=== PATIENT | female | born 1960 | race Hispanic/Latino ===

== ENCOUNTER 2024-07-07 16:33 | Inpatient (IN) | payer OTHER, SELFPAY ==
[2024-07-07 16:57] LABS: Absolute Basophils 0.1 K/uL (0-0.5); Absolute Eosinophils 0.1 K/uL (0-0.5); Absolute Lymphocytes (CBC) 1.4 K/uL (0.7-4.9); Absolute Monocytes 1.4 K/uL (0.1-1.3); Absolute Neutrophil 12.2 K/uL (1.8-8.0); Basophils % 0.4 % (0-1.3); Eosinophils % 0.6 % (0-4.4); Hematocrit 30.4 % (36.0-45.0); Hemoglobin 9.9 g/dL (12.0-15.0); Lymphocytes % 9.5 % (15.3-44.8); MCH 29.6 pg (27.0-35.0); MCHC 32.7 g/dL (32.0-36.0); MCV 90.3 fL (80-100); MPV 7.9 fL (7.6-11.3); Neutrophils % 80.5 % (41.7-73.7); Platelets 238 thou/uL (152-406); RBC Red Blood Cell Count 3.36 M/uL (3.86-4.86); Red Cell Distribution Width 13.6 % (12.1-15.2)
[2024-07-07 17:06] LABS: PT Prothrombin Time 12.1 SECONDS (9.4-12.5); PTT, Activated Partial Thromb 29.5 SECONDS (24.3-36.9); Protime INR 1.08
[2024-07-07] MEDS ORDERED: NA CHLORIDE 0.9% 2,000 ML ONE (17:06)
[2024-07-07 17:22] LABS: Albumin 2.3 g/dL (3.4-5.0); Albumin/Globulin Ratio 0.5 (1.1-1.8); Alkaline Phosphatase 133 U/L (45-117); Anion Gap 10.4 mEq/L (5.0-15.0); BUN Blood Urea Nitrogen 37 mg/dL (7-18); Bicarbonate 23 mEq/L (21-32); Bilirubin Total 0.4 mg/dL (0.2-1.0); Creatine Phosphokinase 32 U/L (26-192); Globulin 4.5 g/dL (2.3-3.5); Glomerular Filtration Rate 21 ml/min (=/>90); Glucose Level 322 mg/dL (74-106); Potassium 4.4 mEq/L (3.5-5.1); Protein, Total 6.8 g/dL (6.4-8.2); Sodium Level 137 mEq/L (136-145); Troponin High Sensitivity 7.2 pg/mL (<58.9)
[2024-07-07 17:23] LABS: ALT/SGPT < 14 U/L (13-56); AST/SGOT < 10 U/L (15-37)
[2024-07-07 17:43] LABS: Specific Gravity 1.015 (1.005-1.030); Sqamous Epithelial <5 /HPF (None Seen); Urine Bacteria <20 /HPF (<20); Urine Bilirubin NEGATIVE (Negative); Urine Blood 1+ (Negative); Urine Clarity Turbid (Clear); Urine Color Light-Yellow (Yellow); Urine Crystals Unidentified Few /HPF (None Seen); Urine Culture Reflex Order REFLEXED; Urine Glucose 4+ (Over) (Negative); Urine Ketones NEGATIVE (Negative); Urine Microscopic Reflex YN ORDER UMIC; Urine Mucus Slight /HPF (None Seen); Urine Nitrite NEGATIVE (Negative); Urine Protein 3+ (Negative); Urine RBC 21-50 /HPF (None Seen); Urine Urobilinogen Normal (Normal); Urine WBC >50 /HPF (<5); Urine WBC Clump Rare /HPF (None Seen); Urine Yeast (Budding) Trace /HPF (None Seen); Urine pH 6.5 (5.0-7.0)
--- NOTE | 2024-07-07 17:47 | RAD REPORT ---
EXAMINATION: ONE VIEW CHEST XR CLINICAL INDICATION: Female, 63 years old.FEVER TECHNIQUE: 1 View, AP supine, X-ray of the chest was performed. [id number]. COMPARISON: No prior exam. FINDINGS: Lungs and pleura: Clear lungs. No effusion. Heart and mediastinum: Normal heart size. Unremarkable mediastinal contours. Osseous structures: No acute abnormality. Tubes/lines: None Other: None. IMPRESSION: No acute intrathoracic abnormality.
[2024-07-07] MEDS ORDERED: NA CHLORIDE 0.9% 100 ML ONE (18:03)
[2024-07-07] MEDS ORDERED: CEFEPIME 1 GM/VIAL ONE (18:03)
[2024-07-07 18:05] LABS: SARS-CoV-2 Antigen CONTROL BLUE LINE VIS/BG OK; SARS-CoV-2 Antigen Rapid Res Negative (Negative)
--- NOTE | 2024-07-07 18:16 | ER ---
Nurse's Notes [facility] Name: Rosemary Tanner Age: 63 yrs Sex: Female : 1960 Arrival Date: 07/07/2024 Time: 16:33 Bed 20 Private MD: Diagnosis: Urosepsis, influenza, fever Presentation: 07/07 16:45 Chief complaint: EMS states: "toned out for being found unresponsive in car. On arrival mb9 pt was slow to respond and alert. Temperature 102.9, 1 gram Ofirmev, 10 mg reglan, and 1 liter of 0.9 NS given via 18 g right AC.". Coronavirus screen:. Ebola Screen: No symptoms or risks identified at this time. Initial Sepsis Screen: Does the patient meet any 2 criteria? Temp <36.0*C (96.8*F)) or > 38.3*C (100.9*F). HR > 90 bpm. Does the patient have a suspected source of infection? No. Patient's initial sepsis screen is negative. Risk Assessment: Do you want to hurt yourself or someone else? Patient reports no desire to harm self or others. Onset of symptoms was July 07, 2024. 16:45 Acuity: KENNY 2 mb9 16:45 Method Of Arrival: EMS: [facility] 9 16:45 Care prior to arrival: Medication(s) given: Normal saline infusion, 1000 mL, Tylenol, cm10 1000 mg, Reglan 10mg IV initiated. 18 GA, in the right antecubital area. Historical: - Allergies: 16:47 No Known Allergies; mb9 - Home Meds: 16:47 metformin 500 mg Oral tablet [Active]; gabapentin oral [Active]; mb9 - PMHx: 16:47 Diabetes mellitus; Hypertensive disorder; mb9 - Immunization history:: Adult Immunizations up to date. - Infectious Disease History:: Denies. - Social history:: Smoking status: unknown. Screenin:35 [facility] ED Fall Risk Assessment (Adult) History of falling in the last 3 months, cm10 including since admission No falls in past 3 months (0 pts) Confusion or Disorientation No (0 pts) Intoxicated or Sedated No (0 pts) Impaired Gait No (0 pts) Mobility Assist Device Used No (0 pt) Altered Elimination No (0 pt) Score/Fall Risk Level 0 - 2 = Low Risk Oriented to surroundings, Maintained a safe environment, Hourly rounding (assess needs \\T\\ fall precautionary measures) done. Abuse screen: Denies threats or abuse. Denies injuries from another. Nutritional screening: No deficits noted. Tuberculosis screening: No symptoms or risk factors identified. Assessment: 17:36 General: Appears in no apparent distress. comfortable, Behavior is calm, cooperative. cm10 Pain: Denies pain. Neuro: No deficits noted. Level of Consciousness is awake, alert, obeys commands, Oriented to person, place, time, situation, Appropriate for age. Respiratory: No deficits noted. Airway is patent Respiratory effort is even, unlabored, Respiratory pattern is regular, symmetrical. GI: Reports nausea, vomiting. 18:11 Reassessment: Patient appears in no apparent distress at this time. No changes from cm10 previously documented assessment. Patient and/or family updated on plan of care and expected duration. Pain level reassessed. Patient is alert, oriented x 3, equal unlabored respirations, skin warm/dry/pink. 19:33 Reassessment: Patient and/or family updated on plan of care and expected duration. Pain br2 level reassessed. Patient is alert, oriented x 3, equal unlabored respirations, skin warm/dry/pink. Patient states feeling better. Patient states symptoms have improved. Vital Signs: 16:45 BP 153 / 68; Pulse 110; Resp 15; Temp 101.3; Pulse Ox 94% on R/A; Weight 90.72 kg; mb9 Height 5 ft. 5 in. ; 17:45 BP 143 / 70; Pulse 103; Resp 18; Pulse Ox 98% on R/A; cm10 17:58 Temp 99.8(O); cm10 18:00 BP 156 / 74; Pulse 104; Resp 20; Pulse Ox 98% on R/A; cm10 18:15 BP 146 / 75; Pulse 103; Resp 16; Pulse Ox 98% on R/A; cm10 19:00 BP 146 / 78; Pulse 98; Resp 18; Pulse Ox 98% on R/A; cm10 19:33 BP 145 / 75; Pulse 100; Resp 20 S; Pulse Ox 97% on R/A; Pain 0/10; br2 16:45 Body Mass Index 33.28 (90.72 kg, 165.1 cm) mb9 19:33 Pain Scale: Adult br2 ED Course: 16:34 Patient arrived in ED. cm10 16:36 Jatin Wilburn MD is Attending Physician. sp3 16:47 Triage completed. mb9 16:48 Arm band placed on. mb9 16:48 EKG done, by ED staff, reviewed by Jatin Wilburn MD. Initial lab(s) drawn, by me, sent to 9 lab. Maintain EMS IV. Dressing intact. Good blood return noted. Site clean \\T\\ dry. Gauge \\T\\ site: 18g right AC. Flushed with 10 mL NS. 17:00 Adriana Jones, RN is Primary Nurse. cm10 17:00 Placed in gown. Bed in low position. Call light in reach. Side rails up X 1. Provided 9 Education on: press call light if needing anything. Client placed on continuous cardiac and pulse oximetry monitoring. NIBP monitoring applied. electronic device monitor on. 17:15 First set of blood cultures drawn. cm10 17:27 Second set of blood cultures drawn by me, Urine collected: clean catch specimen, cm10 cloudy, COVID swab sent to lab. Flu and/or RSV swab sent to lab. Strep swab sent to lab. Inserted saline lock: 18 gauge in left antecubital area, using aseptic technique. Blood collected. Flushed with 10 mL NS. 17:34 Blood Culture Adult (2) Sent. cm10 17:34 Urinalysis w/ reflexes Sent. cm10 17:36 Chest Single View XRAY In Process Unspecified. EDMS 18:15 Santosh Stanley MD is Hospitalizing Provider. sp3 19:59 No provider procedures requiring assistance completed. Patient admitted, IV remains in br2 place. Administered Medications: 17:20 Drug: NS 0.9% IV (30 ml/kg) 30 ml/kg IV at bolus once; Sepsis Protocol; to be given as cm10 a bolus over 90 minutes Route: IV; Rate: bolus; Site: left antecubital; 18:41 Follow up: Response: No adverse reaction; IV Status: Completed infusion; IV Intake: cm10 1721.6ml ; 1Ltr NS given GRADUATE ASSISTANT by EMS 18:08 Drug: Cefepime IVPB 1 grams IVPB at 200 ml/hr once over 30 mins; (mix in NS 100 mL) cm10 Route: IVPB; Rate: 200 ml/hr; Infused Over: 30 mins; Site: left antecubital; 18:41 Follow up: Response: No adverse reaction; IV Status: Completed infusion; IV Intake: cm10 100ml Medication: 17:35 VIS not applicable for this client. cm10 Intake: 18:41 IV: 100ml; Total: 100ml. cm10 18:41 IV: 1722ml; Total: 1822ml. cm10 Outcome: 18:16 Decision to Hospitalize by Provider. sp3 19:59 Admitted to Med/surg accompanied by tech, via wheelchair, br2 19:59 Condition: improved 19:59 Condition: improved 19:59 Instructed on the need for admit, 20:00 Patient left the ED. br2 Signatures: Dispatcher [employer] EDJatin Martinez MD MD sp3 Olimpia Rey RN RN mb9 Adriana Jones RN RN cm10 Ruth Ann Charles RN RN br2 Corrections: (The following items were deleted from the chart) 16:48 16:47 Home Meds: None; som kearns 17:58 17:45 Temp 99.8F Oral; cm10 cm10
--- NOTE | 2024-07-07 18:16 | EDPHYS ---
Physician Documentation [facility] Name: Rosemary Tanner Age: 63 yrs Sex: Female : 1960 Arrival Date: 07/07/2024 Time: 16:33 Bed 20 Private MD: ED Physician Jatin Wilburn HPI: 07/07 16:49 This 63 yrs old Female presents to ER via EMS with complaints of Fever, AMS. sp3 16:49 63-year-old female with history of diabetes, hypertension presents via EMS after being sp3 found in her vehicle altered and febrile after evangelical. She states she is just weak currently and denies any pain. Denies any trauma as well. No report of headache, neck pain, chest pain, shortness of breath, vomiting, diarrhea, rash, known sick contacts, travel history, prolonged immobilization, or any other signs or symptoms on ROS at this time.. Historical: - Allergies: 16:47 No Known Allergies; mb9 - Home Meds: 16:47 metformin 500 mg Oral tablet [Active]; gabapentin oral [Active]; mb9 - PMHx: 16:47 Diabetes mellitus; Hypertensive disorder; mb9 - Immunization history:: Adult Immunizations up to date. - Infectious Disease History:: Denies. - Social history:: Smoking status: unknown. ROS: 16:50 Eyes: Negative for injury, pain, redness, and discharge, ENT: Negative for injury, sp3 pain, and discharge, Neck: Negative for injury, pain, and swelling, Cardiovascular: Negative for chest pain, palpitations, and edema, Respiratory: Negative for shortness of breath, cough, wheezing, and pleuritic chest pain, Abdomen/GI: Negative for abdominal pain, nausea, vomiting, diarrhea, and constipation, Back: Negative for injury and pain, MS/Extremity: Negative for injury and deformity, Neuro: Negative for headache, weakness, numbness, tingling, and seizure, Allergy/Immunology: Negative for hives, rash, and allergies, Endocrine: Negative for neck swelling, polydipsia, polyuria, polyphagia, and marked weight changes, 16:50 All other systems are negative, Exam: 16:50 Constitutional: This is a well developed, well nourished patient who is awake, alert, sp3 and in no acute distress. Head/Face: Normocephalic, atraumatic. Eyes: Pupils equal round and reactive to light, extra-ocular motions intact. Lids and lashes normal. Conjunctiva and sclera are non-icteric and not injected. Cornea within normal limits. Periorbital areas with no swelling, redness, or edema. ENT: Nares patent. No nasal discharge, no septal abnormalities noted. External auditory canals are clear. Oropharynx with no redness, swelling, or masses, exudates, or evidence of obstruction, uvula midline. Mucous membranes moist. Neck: Trachea midline, no thyromegaly or masses palpated, and no cervical lymphadenopathy. Supple, full range of motion without nuchal rigidity, or vertebral point tenderness. No Meningismus. Chest/axilla: Normal chest wall appearance and motion. Nontender with no deformity. No lesions are appreciated. Cardiovascular: Regular rate and rhythm with a normal S1 and S2. No gallops, murmurs, or rubs. Normal PMI, no JVD. No pulse deficits. Respiratory: Lungs have equal breath sounds bilaterally, clear to auscultation and percussion. No rales, rhonchi or wheezes noted. No increased work of breathing, no retractions or nasal flaring. Abdomen/GI: Soft, non-tender, with normal bowel sounds. No distension or tympany. No guarding or rebound. No evidence of tenderness throughout. Skin: Warm, dry with normal turgor. Normal color with no rashes, no lesions, and no evidence of cellulitis. MS/ Extremity: Pulses equal, no cyanosis. Neurovascular intact. Full, normal range of motion. Neuro: Awake and alert, GCS 15, oriented to person, place, time, and situation. Cranial nerves II-XII grossly intact. Motor strength 5/5 in all extremities. Sensory grossly intact. Cerebellar exam normal. Normal gait. 16:50 Neuro: Slow to respond but neurologically intact., 17:24 ECG was reviewed by the Attending Physician. EKG demonstrates normal sinus rhythm at 64 sp3 bpm with normal intervals, normal QRS, normal axis, nonspecific diffuse ST/T changes without evidence of acute ischemia. Vital Signs: 16:45 BP 153 / 68; Pulse 110; Resp 15; Temp 101.3; Pulse Ox 94% on R/A; Weight 90.72 kg; mb9 Height 5 ft. 5 in. ; 17:45 BP 143 / 70; Pulse 103; Resp 18; Pulse Ox 98% on R/A; cm10 17:58 Temp 99.8(O); cm10 18:00 BP 156 / 74; Pulse 104; Resp 20; Pulse Ox 98% on R/A; cm10 18:15 BP 146 / 75; Pulse 103; Resp 16; Pulse Ox 98% on R/A; cm10 19:00 BP 146 / 78; Pulse 98; Resp 18; Pulse Ox 98% on R/A; cm10 19:33 BP 145 / 75; Pulse 100; Resp 20 S; Pulse Ox 97% on R/A; Pain 0/10; br2 16:45 Body Mass Index 33.28 (90.72 kg, 165.1 cm) mb9 19:33 Pain Scale: Adult br2 MDM: 16:37 Medical Screening Exam initiated sp3 16:51 Data reviewed: vital signs, nurses notes, lab test result(s), EKG, radiologic studies. sp3 ED course: 63-year-old female with PMH above now with altered mental status, fever and weakness generally. Differential diagnosis includes viral illness, COVID-19, influenza, pharyngitis, pneumonia, UTI, electrolyte abnormality, dehydration, rhabdomyolysis, among others. I am not highly suspicious for acute coronary syndrome, meningitis or any other concerning pathway. Pulse is elevated and patient is febrile. Sepsis alert called. Fluid bolus, antipyretics ordered. Labs, chest x-ray and swabs all pending. Disposition pending workup and patient course of probable admission.. 18:14 ED course: Patient with urosepsis. Post IV fluid resuscitation reevaluation for sepsis sp3 demonstrates heart rate at 103 and temperature at 99.8. Patient is also flu positive. Cefepime started for UTI. Patient will be admitted to hospitalist service for further evaluation. Lactate is normal.. 07/07 16:44 Order name: Blood Culture Adult (2) sp3 07/07 16:44 Order name: CBC with Diff; Complete Time: 17:48 sp3 07/07 16:44 Order name: CMP; Complete Time: 17:48 sp3 07/07 16:44 Order name: Lactate w/ 2H reflex if indic.; Complete Time: 17:48 sp3 07/07 16:44 Order name: Protime (+inr); Complete Time: 17:48 sp3 07/07 16:44 Order name: Ptt, Activated; Complete Time: 17:48 sp3 07/07 16:44 Order name: Urinalysis w/ reflexes; Complete Time: 17:48 sp3 07/07 16:44 Order name: Troponin High Sensitivity; Complete Time: 17:48 sp3 07/07 16:44 Order name: Flu sp3 07/07 16:44 Order name: SARS RAPID sp3 07/07 16:44 Order name: Strep 3 07/07 16:44 Order name: CK; Complete Time: 17:48 sp3 07/07 17:46 Order name: Urine Culture EDMS 07/07 18:09 Order name: Throat Culture EDMS 07/07 18:49 Order name: Basic Metabolic Panel EDMS 07/07 18:49 Order name: CBC with Automated Diff EDMS 07/07 18:49 Order name: Creatine Phosphokinase EDMS 07/07 18:49 Order name: Lactate w/ 2H reflex if indic. EDMS 07/07 18:50 Order name: Liver (Hepatic) Function EDMS 07/07 18:50 Order name: Magnesium EDMS 07/07 18:50 Order name: NT PRO-BNP EDMS 07/07 18:50 Order name: Phosphorus EDMS 07/07 18:50 Order name: PTT, Activated Partial Thromb EDMS 07/07 18:50 Order name: Thyroid Stimulating Hormone EDMS 07/07 18:50 Order name: Urinalysis w/ reflexes EDMS 07/07 18:50 Order name: Lipid Profile EDMS 07/07 18:50 Order name: Lipid Profile EDMS 07/07 18:50 Order name: Troponin High Sensitivity EDMS 07/07 18:50 Order name: Troponin High Sensitivity EDMS 07/07 18:50 Order name: Troponin High Sensitivity EDMS 07/07 18:50 Order name: Troponin High Sensitivity EDMS 07/07 16:44 Order name: Chest Single View XRAY; Complete Time: 17:48 3 07/07 18:49 Order name: CONS Physician Consult EDWY 07/07 16:44 Order name: Accucheck; Complete Time: 17:34 sp3 07/07 16:44 Order name: Cardiac monitoring; Complete Time: 17:34 3 07/07 16:44 Order name: EKG - Nurse/Tech; Complete Time: 16:49 3 07/07 16:44 Order name: IV Saline Lock - Large Bore; Complete Time: 16:49 sp3 07/07 16:44 Order name: Labs collected and sent; Complete Time: 16:49 sp3 07/07 16:44 Order name: O2 Per Protocol; Complete Time: 16:49 sp3 07/07 16:44 Order name: O2 Sat Monitoring; Complete Time: 16:49 sp3 07/07 16:44 Order name: Vital Signs; Complete Time: 16:49 sp3 Administered Medications: 17:20 Drug: NS 0.9% IV (30 ml/kg) 30 ml/kg IV at bolus once; Sepsis Protocol; to be given as cm10 a bolus over 90 minutes Route: IV; Rate: bolus; Site: left antecubital; 18:41 Follow up: Response: No adverse reaction; IV Status: Completed infusion; IV Intake: cm10 1721.6ml ; 1Ltr NS given GENERAL FOREMAN by EMS 18:08 Drug: Cefepime IVPB 1 grams IVPB at 200 ml/hr once over 30 mins; (mix in NS 100 mL) cm10 Route: IVPB; Rate: 200 ml/hr; Infused Over: 30 mins; Site: left antecubital; 18:41 Follow up: Response: No adverse reaction; IV Status: Completed infusion; IV Intake: cm10 100ml Disposition Summary: 07/07/24 18:16 Hospitalization Ordered Notes: Hospitalization Status: Inpatient Admission sp3 Provider: Santosh Stanley [facility] sp[facility] Condition: Stable sp3 Problem: an acute exacerbation sp3 Symptoms: have worsened sp3 Bed/Room Type: Standard sp3 Room Assignment: [facility](07/07/24 19:03) [facility] Diagnosis - Urosepsis, influenza, fever sp3 Forms: - Medication Reconciliation Form sp3 - SBAR form sp3 - Leadership Thank You Letter sp3 Signatures: Dispatcher [employer] EDJatin Martinez MD MD sp3 Olimpia Rey RN RN mb9 Adriana Jones RN RN cm10 Deedee Galdamez [facility] Corrections: (The following items were deleted from the chart) 16:44 16:44 Head Brain Wo Cont+CT.RAD.BRZ ordered. EDMS EDMS 16:44 16:44 CREATINE PHOSPHOKINASE+C.LAB.BRZ ordered. EDMS EDMS 16:48 16:47 Home Meds: None; mb9 mb9 19:03 18:16 sp3 kmf
[2024-07-07] MEDS ORDERED: ONDANSETRON 4 MG (ODT) TAB PO PRN (18:42)
[2024-07-07] MEDS ORDERED: GLUCAGON 1 MG/VIAL IM PRN (18:48)
[2024-07-07] MEDS ORDERED: D10W 125 ML IV PRN (18:48)
--- NOTE | 2024-07-07 19:00 | P.HP ---
Certification for Inpatient With expected LOS: <2 Midnights Practitioner: I am a practitioner with admitting privileges, knowledge of patient current condition, hospital course, and medical plan of care. Services: Services provided to patient in accordance with Admission requirements found in Title 42 Section 412.3 of the Code of Federal Regulations Patient History Date of Service: 07/07/24 Reason for admission: UTI, urosepsis History of Present Illness: 63 year old woman with a PMH of HTN, and DMT2 insulin dependent presented to the ED c/o fever x 2 days. The patient is Croatian speaking, and interpretation services were utilized for Croatian interpretation. Language ID [id number]. Also, the patient's family is present at bedside. The patient is alert, and oriented x 3. She states that she took Aleve for her fever earlier today, but her fever returned this evening. The patient denies dysuria, flank pain, urinary frequency, and urinary urgency. She states nothing worsens her fever. - Past Medical/Surgical History Diabetic: Yes -: HTN -: DM insulin dependent- 22 units daily Past Surgical History: Patient denies surgical history - Social History Smoking Status: Never smoker Alcohol use: No Review of Systems General: Fever Physical Examination - Vital Signs Temperature: 101.3 F Blood Pressure: 146/75 Pulse: 103 Respirations: 16 Pulse Ox (%): 97 - Physical Exam General: Alert, Oriented x3 HEENT: Atraumatic, Normocephalic Neck: JVD not distended Respiratory: Normal air movement Cardiovascular: No gallops, No rubs, No murmurs Gastrointestinal: Normal bowel sounds, Non-distended Musculoskeletal: Swelling (b/l lower extremities, right mildy worse than left) Neurological: Normal strength at 5/5 x4 extr, Sensation intact - Studies Laboratory Data (last 24 hrs) 07/07/24 07/07/24 07/07/24 16:48 16:48 16:48 WBC 15.20 H Hgb 9.9 L Hct 30.4 L Plt Count 238 PT 12.1 INR 1.08 APTT 29.5 Sodium 137 Potassium 4.4 BUN 37 H Creatinine 2.53 H Glucose 322 H Total Bilirubin 0.4 AST < 10 L ALT < 14 Alkaline Phosphatase 133 H Microbiology Data (last 24 hrs): 07/07/24 17:27 Throat Group A Streptococcus Rapid Screen - Final 07/07/24 17:27 Nasopharnyx Influenza Type A Antigen Screen - Final 07/07/24 17:27 Nasopharnyx Influenza Type B Antigen Screen - Final Assessment and Plan - Problems (Diagnosis) (1) UTI (urinary tract infection) Current Visit: Yes Status: Acute (2) Diabetes Current Visit: Yes Status: Acute Qualifiers: Diabetes mellitus type: type 2 (3) Hypertension Current Visit: Yes Status: Acute - Plan UTI/urosepsis: Admit to floor Telemetry ordered for tachycardia nephrology consulted blood cx, urine cx collected prior to any antibiotic given Given Tylenol. cefepime, and IVFs in ED DM: On insulin sliding scale HTN: resume home medication - Advance Directives Does patient have a Living Will: No Does patient have a Durable POA for Healthcare: No
[2024-07-07 20:15] VITALS: BMI 32.8
[2024-07-07] MEDS: CEFEPIME 1 GM in NA CHLORIDE 0.9% 100 ML IV SCH (21:00)
[2024-07-08] MEDS: HEPARIN 5000 UNIT/ML 1 ML VIAL SQ SCH (00:12)
[2024-07-08] MEDS: METOPROLOL TAR 25 MG TAB PO SCH (05:06)
[2024-07-08 05:45] LABS: Absolute Basophils 0.1 K/uL (0-0.5); Absolute Lymphocytes (CBC) 1.5 K/uL (0.7-4.9); Absolute Monocytes 1.1 K/uL (0.1-1.3); Basophils % 0.5 % (0-1.3); Eosinophils % 0.3 % (0-4.4); Hematocrit 29.1 % (36.0-45.0); Hemoglobin 9.8 g/dL (12.0-15.0); Lymphocytes % 12.6 % (15.3-44.8); MCH 30.3 pg (27.0-35.0); MCHC 33.7 g/dL (32.0-36.0); MCV 90.1 fL (80-100); MPV 7.8 fL (7.6-11.3); Monocytes % 9.1 % (3.3-12.3); Neutrophils % 77.5 % (41.7-73.7); Platelets 252 thou/uL (152-406); RBC Red Blood Cell Count 3.23 M/uL (3.86-4.86); Red Cell Distribution Width 13.4 % (12.1-15.2)
[2024-07-08 06:08] LABS: Albumin 2.1 g/dL (3.4-5.0); Albumin/Globulin Ratio 0.5 (1.1-1.8); Alkaline Phosphatase 123 U/L (45-117); Anion Gap 8.9 mEq/L (5.0-15.0); BUN Blood Urea Nitrogen 31 mg/dL (7-18); Bicarbonate 24 mEq/L (21-32); Bilirubin Total 0.4 mg/dL (0.2-1.0); Creatine Phosphokinase 33 U/L (26-192); Globulin 4.5 g/dL (2.3-3.5); Glomerular Filtration Rate 23 ml/min (=/>90); Glucose Level 302 mg/dL (74-106); HDL Cholesterol 58 mg/dL (40-60); LDL Cholesterol, Calculated 89 mg/dL (<130); LDL Cholesterol,Calc NonReport 89; Magnesium 1.7 mg/dL (1.6-2.4); NT PRO-BNP 3065 pg/mL (<125); Phosphorus 2.8 mg/dL (2.5-4.9); Potassium 3.9 mEq/L (3.5-5.1); Protein, Total 6.6 g/dL (6.4-8.2); Sodium Level 139 mEq/L (136-145); Troponin High Sensitivity 15.3 pg/mL (<58.9)
[2024-07-08 06:09] LABS: ALT/SGPT < 14 U/L (13-56); AST/SGOT < 10 U/L (15-37); Bilirubin Direct < 0.2 mg/dL (0-0.2); Bilirubin Indirect, Calculated 0.2 mg/dL (0.2-0.8)
[2024-07-08] MEDS: MAGNESIUM SULFATE 1 gm IVPB 1 GM/100 ML BAG IV ONE (07:30)
[2024-07-08] MEDS: POTASSIUM 25 MEQ EFFERV TAB PO ONE (07:30)
[2024-07-08] MEDS: NIFEDIPINE XL 60 MG TABLET PO SCH (09:03)
--- NOTE | 2024-07-08 09:54 | P.PN ---
Date of Service: 07/08/24 Subjective Feeling better, no c/o, wants to take a shower Review of Systems General: Fever Physical Examination - Vital Signs reviewed - Physical Exam General: Alert, Oriented x3 HEENT: Atraumatic, Normocephalic Neck: JVD not distended Respiratory: Normal air movement Cardiovascular: No gallops, No rubs, No murmurs Gastrointestinal: Normal bowel sounds, Non-distended Musculoskeletal: Swelling (b/l lower extremities, right mildy worse than left) Neurological: Normal strength at 5/5 x4 extr, Sensation intact - Studies Laboratory Data (last 24 hrs) 07/07/24 07/07/24 07/07/24 16:48 16:48 16:48 WBC 15.20 H Hgb 9.9 L Hct 30.4 L Plt Count 238 PT 12.1 INR 1.08 APTT 29.5 Sodium 137 Potassium 4.4 BUN 37 H Creatinine 2.53 H Glucose 322 H Total Bilirubin 0.4 AST < 10 L ALT < 14 Alkaline Phosphatase 133 H Microbiology Data (last 24 hrs): 07/07/24 17:27 Throat Group A Streptococcus Rapid Screen - Final 07/07/24 17:27 Nasopharnyx Influenza Type A Antigen Screen - Final 07/07/24 17:27 Nasopharnyx Influenza Type B Antigen Screen - Final Assessment and Plan - Problems (Diagnosis) (1) UTI (urinary tract infection) Current Visit: Yes Status: Acute (2) Diabetes Current Visit: Yes Status: Acute Qualifiers: Diabetes mellitus type: type 2 (3) Hypertension Current Visit: Yes Status: Acute (4) UBALDO Current Visit: Yes Status: Acute (5) Influenza Current Visit: Yes Status: Acute - Plan UTI with severe sepsis: Admit to floor Telemetry ordered for tachycardia nephrology consulted blood cx, urine cx, and then Cefepime Given Tylenol. Cefepime, and IVFs in ED DM: On insulin sliding scale glucose monitoring HTN: resume home medication UBALDO monitor renal function gently rehydration Influenza Flu B positive droplet precautions - Advance Directives Does patient have a Living Will: No Does patient have a Durable POA for Healthcare: No
--- NOTE | 2024-07-08 12:14 | EKG ---
Test Date: 2024-07-07 Test Time: 16:40:19 [employer] Power[employer] Supervisor: WILLI MEASUREMENT RESULTS: Intervals: Rate: 110 SD: 150 QRSD: 72 QT: 326 QTc: 441 [place]: P: 33 SD: 150 QRS: 48 T: 43 INTERPRETIVE STATEMENTS: Sinus tachycardia Possible Left atrial enlargement Nonspecific T wave abnormality Abnormal ECG No previous ECG available for comparison Electronically Signed On 07-08-24 12:12:56 [employer] by Ronn Gallagher
[2024-07-08] MEDS ORDERED: D50W 25 GM/50 ML SYRINGE IV PRN (13:04)
--- NOTE | 2024-07-08 13:28 | RAD REPORT ---
EXAMINATION: CT ABDOMEN AND PELVIS WITHOUT CONTRAST CLINICAL INDICATION: susan hematuria TECHNIQUE: CT abdomen and pelvis was performed, without IV contrast, as per department protocol. Axia l, sagittal and coronal reconstructions were obtained. One or more of the following dose reduction techniques were used: Automated exposure control, adjustment of the mA and kV according to the patien t size, and iterative reconstruction. Unless otherwise specified, incidental findings do not require dedicated imaging follow-up. COMPARISON: No prior exam. FINDINGS: The lack of intravenous contrast limits the sensitivity of this exam for evaluation of solid visceral organs, vascular structures, and retroperitoneum. LOWER CHEST: Trace right pleural fluid. Mild linear atelectasis in both posterior lung bases. LIVER:Normal in size and contour. No focal lesion. Grossly unremarkable gallbladder. SPLEEN: Normal size. No focal lesion. PANCREAS: No mass, ductal dilation, or yuri-pancreatic fluid. ADRENALS: Normal; no mass. KIDNEYS AND URETERS: Normal size and contour. No hydronephrosis. URINARY BLADDER: Normal contour. GASTROINTESTINAL TRACT: No evidence of bowel obstruction, significant free fluid, free air or abscess . There is mild diverticulosis coli of the sigmoid colon without diverticulitis. APPENDIX: Normal appendix. LYMPH NODES: No lymphadenopathy. MUSCULOSKELETAL: No acute or suspicious osseous abnormality. ADDITIONAL FINDINGS: None. IMPRESSION: No acute or concerning abnormalities in the abdomen or pelvis, with evaluation limited by lack of IV contrast.
[2024-07-08] MEDS: INSULIN 70/30 100 UNITS/ML SQ ONE (13:51)
[2024-07-08 14:18] LABS: ALT/SGPT < 14 U/L (13-56); AST/SGOT < 10 U/L (15-37); Albumin 2.5 g/dL (3.4-5.0); Albumin/Globulin Ratio 0.5 (1.1-1.8); Alkaline Phosphatase 140 U/L (45-117); Anion Gap 6.9 mEq/L (5.0-15.0); BUN Blood Urea Nitrogen 30 mg/dL (7-18); Bicarbonate 26 mEq/L (21-32); Bilirubin Total 0.4 mg/dL (0.2-1.0); Globulin 5.2 g/dL (2.3-3.5); Glomerular Filtration Rate 24 ml/min (=/>90); Glucose Level 306 mg/dL (74-106); Potassium 3.9 mEq/L (3.5-5.1); Protein, Total 7.7 g/dL (6.4-8.2); Sodium Level 135 mEq/L (136-145); Uric Acid 5.7 mg/dL (2.6-6.0)
--- NOTE | 2024-07-08 22:18 | RAD REPORT ---
EXAMINATION: US RENAL CLINICAL INDICATION: Acute renal insufficiency TECHNIQUE: Real-time ultrasonography of the kidneys performed. COMPARISON: No prior exam. FINDINGS: Right kidney measures 10 cm with a normal echotexture. Left kidney measures 10 cm with normal echotexture. No hydronephrosis No gross abnormality bladder. IMPRESSION: No significant abnormalities displayed
[2024-07-09 06:17] LABS: Albumin 2.1 g/dL (3.4-5.0); Albumin/Globulin Ratio 0.5 (1.1-1.8); Alkaline Phosphatase 123 U/L (45-117); Anion Gap 10.6 mEq/L (5.0-15.0); BUN Blood Urea Nitrogen 24 mg/dL (7-18); Bicarbonate 23 mEq/L (21-32); Bilirubin Total 0.3 mg/dL (0.2-1.0); Globulin 4.6 g/dL (2.3-3.5); Glomerular Filtration Rate 25 ml/min (=/>90); Glucose Level 195 mg/dL (74-106); Potassium 3.6 mEq/L (3.5-5.1); Protein, Total 6.7 g/dL (6.4-8.2); Sodium Level 137 mEq/L (136-145); Troponin High Sensitivity 10.4 pg/mL (<58.9)
[2024-07-09 06:19] LABS: ALT/SGPT < 14 U/L (13-56); AST/SGOT < 10 U/L (15-37); Absolute Basophils 0.1 K/uL (0-0.5); Absolute Eosinophils 0.2 K/uL (0-0.5); Absolute Lymphocytes (CBC) 1.6 K/uL (0.7-4.9); Absolute Monocytes 0.9 K/uL (0.1-1.3); Absolute Neutrophil 6.1 K/uL (1.8-8.0); Basophils % 0.8 % (0-1.3); Eosinophils % 2.5 % (0-4.4); Hematocrit 28.6 % (36.0-45.0); Hemoglobin 9.7 g/dL (12.0-15.0); Lymphocytes % 18.2 % (15.3-44.8); MCH 30.4 pg (27.0-35.0); MCV 89.4 fL (80-100); MPV 8.3 fL (7.6-11.3); Monocytes % 10.4 % (3.3-12.3); Neutrophils % 68.1 % (41.7-73.7); Nucleated Red Blood Cells % 0.1 % (0-0); Platelets 257 thou/uL (152-406); Red Cell Distribution Width 13.4 % (12.1-15.2)
--- NOTE | 2024-07-09 08:56 | CON ---
Date of Consultation: 07/08/2024 History Of Present Illness: The patient is admitted for urosepsis and urinary tract infection. Lucia ent was found to have positive influenza B. The patient is a 63-year-old woman with past medical his tory of hypertension, diabetes mellitus type 2, insulin dependent, presented to the emergency room be cause of fever of 2 days. Patient denied complaints. She is oriented and alert. She was taking ___ prior to this admission. She denied hematuria and dysuria, incomplete voiding, kidney stone. Past Medical History: Hypertension; diabetes mellitus, on insulin. Social History: Never smoker. Review of Systems: Denies generalized weakness, malaise. Physical Examination: Blood pressure 146/75, temperature 101.3, heart rate 103, respirations 16, pulse oximetry 97%. Lab Work: Hemoglobin 9.9, platelet count 238,000, WBC 15.2. Sodium 137, potassium 4.4, BUN 37, crea tinine 2.53, AST less than 1, ALT less than 14, and glucose 322. Impression And Plan: The patient developed fevers, chills, came to emergency room with lower urinary tract symptoms. The patient was found to have influenza B antigen, which is consistent with influen za infection, although patient has urinary changes and fevers, likely she has urosepsis. Continue to monitor urine culture. Continue IV fluids for acute kidney injury although is not availa ble. 1.Hypertension. Monitor blood pressure closely. 2.Diabetes mellitus type 2. Avoid metformin . 3.Sepsis, check CK level to rule out rhabdomyolysis. In view of hematuria, the patient w ill have ANCA test checked. Patient will require a urology consultation for evaluation of possible source of the hematuria. 4. . EB/MODL Voice ID: [id number] Report ID: [id number]
[2024-07-09] MEDS: POTASSIUM CL SA 10 MEQ TAB PO ONE (11:36)
[2024-07-09] MEDS: HYDRALAZINE HCL 20 MG/ML VIAL IV PRN (13:39)
--- NOTE | 2024-07-09 14:59 | PN ---
Date of Progress Note: 07/09/2024 Subjective: The patient was admitted to the hospital with urosepsis, acute kidney injury. Patient known to have diabetes and hypertension. Patient was started on hydration. Kidney function slightly better. GFR has improved from 21 to 25. Objective: Vital Signs: When I saw the patient, blood pressure 152/67, pulse of 73, afebrile. Chest: Clear to auscultation. Heart: S1, S2. Regular. Abdomen: Soft, nontender. Extremities: No edema. Neuro: Alert. No focality. Laboratory Data: Sodium 137, potassium 3.6, bicarb 23, BUN 24, creatinine 2.1, GFR 25, calcium 9.3. Renal ultrasound negative for obstruction. CT was also negative. Normal-sized kidney 06/13. Current Medications: The patient on, it includes: 1. Cefepime. 2. Metoprolol. 3. Nifedipine. 4. KCl. Assessment And Plan: 1. Acute kidney injury secondary to prerenal/toxic acute tubular necrosis secondary to urosepsis. Continue to improve. I am going to continue to monitor the patient. Keep holding losartan and metformin for the time being. We will send for PC ratio and PTH to evaluate the chronicity of the disease. 2. Chronic kidney disease, normal-sized kidney, secondary to diabetes nephropathy with acute kidney injury as above. 3. Hypokalemia and hyponatremia, mostly secondary to depletional. We will monitor the patient. Patient started eating better. 4. Hypokalemia with the presence of acute kidney injury. We will supplement cautiously. 5. Urinary tract infection. Complicated urinary tract infection has been ruled out. Continue antibiotic. We will follow up culture. 6. Diabetes, as by Primary. Time spent examining the patient [id number] reviewing data lab and the radiology placing order discussing the case with the patient/family member, discussing the case with the steam service inspector including hospitalist and nursing staff more than 55 minutes COLEMAN Voice ID: [id number] Report ID: [id number] KETAN
--- NOTE | 2024-07-09 16:58 | P.PN ---
Date of Service: 07/09/24 Subjective Feeling better, no c/o, awaiting UC, + 3 gram negative rods Review of Systems General: Fever Physical Examination - Vital Signs reviewed - Physical Exam General: Alert, Oriented x3 HEENT: Atraumatic, Normocephalic Neck: JVD not distended Respiratory: Normal air movement Cardiovascular: No gallops, No rubs, No murmurs Gastrointestinal: Normal bowel sounds, Non-distended Musculoskeletal: Swelling (b/l lower extremities, right mildy worse than left) Neurological: Normal strength at 5/5 x4 extr, Sensation intact - Studies 07/09/24 WBC 9.0 H/H 9.7/28.6 Na+ 137, K 3.6, bicarb 23,creatinine 2.17, GFR 25 07/07/24 07/07/24 07/07/24 16:48 16:48 16:48 WBC 15.20 H Hgb 9.9 L Hct 30.4 L Plt Count 238 PT 12.1 INR 1.08 APTT 29.5 Sodium 137 Potassium 4.4 BUN 37 H Creatinine 2.53 H Glucose 322 H Total Bilirubin 0.4 AST < 10 L ALT < 14 Alkaline Phosphatase 133 H 07/07/24 17:27 Throat Group A Streptococcus Rapid Screen - Final 07/07/24 17:27 Nasopharnyx Influenza Type A Antigen Screen - Final 07/07/24 17:27 Nasopharnyx Influenza Type B Antigen Screen - Final Assessment and Plan - Problems (Diagnosis) (1) UTI (urinary tract infection) Current Visit: Yes Status: Acute (2) Diabetes Current Visit: Yes Status: Acute Qualifiers: Diabetes mellitus type: type 2 (3) Hypertension Current Visit: Yes Status: Acute (4) UBALDO Current Visit: Yes Status: Acute (5) Influenza Current Visit: Yes Status: Acute - Plan UTI with severe sepsis: Admit to floor Telemetry ordered for tachycardia nephrology consulted blood cx, urine cx, and then Cefepime Given Tylenol. Cefepime, and IVFs in ED +3 Gram negative rods on culture/awaiting sensitivities for discharge disposition DM: On insulin sliding scale glucose monitoring HTN: resume home medication UBALDO monitor renal function gentle rehydration Influenza Flu B positive droplet precautions - Advance Directives Does patient have a Living Will: No Does patient have a Durable POA for Healthcare: No
[2024-07-09] MEDS: INSULIN REGULAR (HUMAN) 100 UNIT/ML SQ SCH (22:01)
[2024-07-09] MEDS: ACETAMINOPHEN 325 MG TABLET PO PRN (22:09)
[2024-07-09 23:12] LABS: UR PROTEIN 580.2 mg/dL (<11.9); Urine Protein/Creatinine Ratio 11.6 ratio (<0.15)
[2024-07-09 23:20] LABS: Specific Gravity 1.014 (1.005-1.030); Sqamous Epithelial <5 /HPF (None Seen); Urine Bacteria None Seen /HPF (<20); Urine Bilirubin NEGATIVE (Negative); Urine Blood 1+ (Negative); Urine Clarity Clear (Clear); Urine Color Light-Yellow (Yellow); Urine Culture Reflex Order REFLEXED; Urine Glucose 4+ (Over) (Negative); Urine Ketones NEGATIVE (Negative); Urine Microscopic Reflex YN ORDER UMIC; Urine Nitrite NEGATIVE (Negative); Urine Protein 3+ (Negative); Urine Urobilinogen Normal (Normal); Urine WBC 20-50 /HPF (<5)
[2024-07-10 06:17] LABS: Absolute Basophils 0.1 K/uL (0-0.5); Absolute Eosinophils 0.4 K/uL (0-0.5); Absolute Lymphocytes (CBC) 1.7 K/uL (0.7-4.9); Absolute Monocytes 0.7 K/uL (0.1-1.3); Absolute Neutrophil 3.8 K/uL (1.8-8.0); Eosinophils % 5.4 % (0-4.4); Hematocrit 29.3 % (36.0-45.0); Hemoglobin 9.5 g/dL (12.0-15.0); Lymphocytes % 25.4 % (15.3-44.8); MCH 29.2 pg (27.0-35.0); MCHC 32.5 g/dL (32.0-36.0); MCV 89.7 fL (80-100); MPV 8.7 fL (7.6-11.3); Monocytes % 10.2 % (3.3-12.3); Platelets 269 thou/uL (152-406); RBC Red Blood Cell Count 3.26 M/uL (3.86-4.86)
[2024-07-10 06:39] LABS: Albumin 2.1 g/dL (3.4-5.0); Albumin/Globulin Ratio 0.5 (1.1-1.8); Alkaline Phosphatase 105 U/L (45-117); Anion Gap 8.7 mEq/L (5.0-15.0); BUN Blood Urea Nitrogen 27 mg/dL (7-18); Bicarbonate 25 mEq/L (21-32); Bilirubin Total 0.3 mg/dL (0.2-1.0); Globulin 4.6 g/dL (2.3-3.5); Glomerular Filtration Rate 26 ml/min (=/>90); Glucose Level 184 mg/dL (74-106); Magnesium 1.9 mg/dL (1.6-2.4); Phosphorus 3.1 mg/dL (2.5-4.9); Potassium 3.7 mEq/L (3.5-5.1); Protein, Total 6.7 g/dL (6.4-8.2); Sodium Level 136 mEq/L (136-145)
[2024-07-10 06:46] LABS: ALT/SGPT < 14 U/L (13-56); AST/SGOT < 10 U/L (15-37)
[2024-07-10] MEDS: METOPROLOL TAR 25 MG TAB PO ONE (07:36)
[2024-07-10] MEDS: INSULIN GLARGINE 100 UNIT/ML SQ SCH (08:10)
[2024-07-10] MEDS: POTASSIUM CL SA 10 MEQ TAB PO ONE (11:15)
[2024-07-10] MEDS: HYDRALAZINE HCL 25 MG TABLET PO SCH (13:13)
[2024-07-10] MEDS: Meropenem 500 MG in NA CHLORIDE 0.9% 100 ML IV SCH (14:30)
[2024-07-10 14:54] LABS: Abnormal Protein Band 1 REPORT; Alpha-1-Globulins 0.5 g/dL (0.2-0.3); Alpha-2-Globulins 1.1 g/dL (0.5-0.9); Beta 1 Globulin 0.4 g/dL (0.4-0.6); Gamma Globulins 1.2 g/dL (0.8-1.7); INTERPRETATION REPORT; Total Protein 6.7 g/dL (6.1-8.1)
--- NOTE | 2024-07-10 15:41 | PN ---
Date of Progress Note: 07/10/2024 Subjective: The patient was admitted to the hospital with flu, UTI. The patient had acute kidney in jury secondary to prerenal and urosepsis. The patient's kidney function started being improving. Sae issa's respiratory status improved. Objective: Vital Signs: Blood pressure 185/84, pulse of 72. Chest: Clear to auscultation. Heart: S1, S2. Regular. Abdomen: Soft, nontender. Extremities: No edema. Neuro: Alert. No focality. Laboratory Data: Hemoglobin 9.5, sodium 136, potassium 3.7, bicarb 25, BUN 27, creatinine down to 2, GFR 26, calcium 9.2, phosphorus 3.1, magnesium 1.9, albumin 2.1, corrected calcium is 10.8. PC rati o is 11. Current Medications: The patient on, include: 1.Cefepime. 2.Metoprolol. 3.Nifedipine. Renal ultrasound, 06/13. Assessment And Plan: 1.Acute kidney injury on chronic kidney disease, normal-sized kidney with nephrotic range proteinuri a secondary to poor perfusion acute tubular necrosis, toxic acute tubular necrosis secondary to urose psis, on the recovery phase. I am going to keep holding IV fluid and we will continue to monitor the patient, awaiting for the results of her serology given the nephrotic range of proteinuria. 2.Nephrotic range proteinuria mostly secondary to diabetes with the presence of acute kidney injury and anemia. Serum protein electrophoresis has been sent. Serology still pending. We will follow up . 3.Anemia of chronic kidney disease with the presence of nephrotic range proteinuria. Followup serum protein electrophoresis. I am going to go ahead and send for iron study. 4.Hypertension, not controlled. Yesterday, we increased nifedipine. I am going to go ahead and sta rt the patient on hydralazine. We will hold on any MARY inhibitor or ARB given the acute kidney injur y for the time being, and we will follow up further response. 5.Urinary tract infection secondary to Escherichia coli, multidrug resistant. The patient needs to be switch to meropenem. Will follow up with the primary. YON/ANN Voice ID: [id number] Report ID: [id number]
[2024-07-10] MEDS: METOPROLOL XL 50 MG TAB PO SCH (16:54)
--- NOTE | 2024-07-10 17:23 | P.PN ---
Date of Service: 07/10/24 Subjective Feeling better, no c/o, awaiting UC, + 3 gram negative rods - reported this am as E. coli ESBL only sensitive to Merrem Review of Systems General: bodyaches 10pt ROS otherwise negative Physical Examination - Vital Signs reviewed - Physical Exam General: Alert, Oriented x3 HEENT: Atraumatic, Normocephalic Neck: JVD not distended Respiratory: Normal air movement Cardiovascular: No gallops, No rubs, No murmurs Gastrointestinal: Normal bowel sounds, Non-distended Musculoskeletal: tender to lower extremities Neurological: Normal strength at 5/5 x4 extr, Sensation intact - Studies 07/09/24 WBC 9.0 H/H 9.7/28.6 Na+ 137, K 3.6, bicarb 23,creatinine 2.17, GFR 25 07/10/24 WBC 6.0 H/H 9.5/29.3 Na+ 136, K 3.7, bicarb 25, creatinine 2.09, GFR 26 07/07/24 07/07/24 07/07/24 16:48 16:48 16:48 WBC 15.20 H Hgb 9.9 L Hct 30.4 L Plt Count 238 PT 12.1 INR 1.08 APTT 29.5 Sodium 137 Potassium 4.4 BUN 37 H Creatinine 2.53 H Glucose 322 H Total Bilirubin 0.4 AST < 10 L ALT < 14 Alkaline Phosphatase 133 H 07/07/24 17:27 Throat Group A Streptococcus Rapid Screen - Final 07/07/24 17:27 Nasopharnyx Influenza Type A Antigen Screen - Final 07/07/24 17:27 Nasopharnyx Influenza Type B Antigen Screen - Final Assessment and Plan - Problems (Diagnosis) (1) UTI (urinary tract infection) Current Visit: Yes Status: Acute (2) Diabetes Current Visit: Yes Status: Acute Qualifiers: Diabetes mellitus type: type 2 (3) Hypertension Current Visit: Yes Status: Acute (4) UBALDO Current Visit: Yes Status: Acute (5) Influenza Current Visit: Yes Status: Acute - Plan UTI with severe sepsis: Admit to floor Telemetry ordered for tachycardia nephrology consulted blood cx, urine cx, and then Cefepime Given Tylenol. Cefepime, and IVFs in ED +3 Gram negative rods on culture/awaiting sensitivities for discharge disposition 07/10/24 ESBL E. coli - only sensitive to Merrem, switched to Merrem. Midline placed. Pt does not qualify for HH. Will need to stay hospitalized to complete course. DM: On insulin sliding scale glucose monitoring HTN with UBALDO resume home medication 07/10/24 doubled metoprolol this am as pt continues with HTN. Holding MARY/ARB/Diuretics second to UBALDO monitor renal function (improving slowly, urine with significant protein), Dr. Reardon consulted and has been following gentle rehydration Anemia of chronic disease Influenza Flu B positive droplet precautions 07/10/24 bodyaches continue, will restart Gabapentin that she sometimes takes at home. - Advance Directives Does patient have a Living Will: No Does patient have a Durable POA for Healthcare: No
[2024-07-10] MEDS: Mupirocin NASAL 2 APPL/1 GM TUBE NAS SCH (20:04)
[2024-07-10] MEDS: GABAPENTIN 300 MG CAP PO SCH (20:06)
[2024-07-10 20:47] LABS: Immunofixation Electrophoresis Normal pattern.
[2024-07-10] MEDS ORDERED: Meropenem 500 MG in NA CHLORIDE 0.9% 100 ML IV SCH (21:00)
[2024-07-11 05:24] LABS: Absolute Eosinophils 0.3 K/uL (0-0.5); Absolute Lymphocytes (CBC) 1.9 K/uL (0.7-4.9); Absolute Monocytes 0.7 K/uL (0.1-1.3); Basophils % 0.7 % (0-1.3); Eosinophils % 4.6 % (0-4.4); Hematocrit 27.7 % (36.0-45.0); Hemoglobin 9.3 g/dL (12.0-15.0); Lymphocytes % 31.4 % (15.3-44.8); MCHC 33.4 g/dL (32.0-36.0); MCV 89.8 fL (80-100); MPV 8.1 fL (7.6-11.3); Monocytes % 11.5 % (3.3-12.3); Neutrophils % 51.8 % (41.7-73.7); Percent Reticulocyte Count 1.22 % (0.4-2.05); Platelets 256 thou/uL (152-406); RBC Red Blood Cell Count 3.08 M/uL (3.86-4.86); Red Cell Distribution Width 13.3 % (12.1-15.2)
[2024-07-11 05:47] LABS: AST/SGOT 14 U/L (15-37); Albumin/Globulin Ratio 0.5 (1.1-1.8); Alkaline Phosphatase 97 U/L (45-117); Anion Gap 7.8 mEq/L (5.0-15.0); BUN Blood Urea Nitrogen 27 mg/dL (7-18); Bicarbonate 25 mEq/L (21-32); Bilirubin Total 0.2 mg/dL (0.2-1.0); Ferritin 78.9 ng/mL (8-252); Globulin 4.3 g/dL (2.3-3.5); Glomerular Filtration Rate 25 ml/min (=/>90); Glucose Level 153 mg/dL (74-106); Potassium 3.8 mEq/L (3.5-5.1); Protein, Total 6.3 g/dL (6.4-8.2); Sodium Level 137 mEq/L (136-145); Transferrin 163 mg/dL (200-360)
[2024-07-11 05:50] LABS: ALT/SGPT < 14 U/L (13-56)
--- NOTE | 2024-07-11 08:35 | P.DS ---
Admission Date: 07/07/24 Discharge Date: 07/11/24 Reason for Admission: UTI, urosepsis Consultations: Aroumtx Procedures: Midline IV Brief History of Present Illness: 63 year old woman with a PMH of HTN, and DMT2 insulin dependent presented to the ED c/o fever x 2 days. The patient is Icelandic speaking, and interpretation services were utilized for Icelandic interpretation. Language ID [id number]. Also, the patient's family is present at bedside. The patient is alert, and oriented x 3. She states that she took Aleve for her fever earlier today, but her fever returned this evening. The patient denies dysuria, flank pain, urinary yariel quency, and urinary urgency. She states nothing worsens her fever. Hospital Course: Mrs. Rachel Tanner is feeling better, fever likely from influenza, UBALDO multifactorial with diabetic CKD, medication for s/s and chronic illnesses in the setting of sepsis/volume depletion. Chest xray did not indicate pneumonia. Urinalysis culture + for ESBL E. coli. Multidrug resistant, placed on Merrem x 3 doses and will discharge on single strength Bactrim x 7 days. Please follow up with PCP and stop Losartan and Metformin until renal status re-evaluated. <Mica Newman - Last Filed: 07/11/24 11:38> Admission Date: 07/07/24 Discharge Date: 07/11/24 Hospital Course: Discharge diagnosis #1 influenza-B #2 acute pyelonephritis with ESBL E. coli #3 uncontrolled type 2 diabetes #4 UBALDO on likely diabetic CKD with heavy proteinuria #5 sepsis associated with #1 and #2 Urine culture positive for ESBL E. coli sensitive to Bactrim, gabapentin <ROLAN Ross - Last Filed: 07/11/24 14:46> Disposition: ROUTINE DISCHARGE Discharge Condition: GOOD Vital Signs/Physical Exam: Temp Pulse Resp BP Pulse Ox 96.9 F 70 18 140/70 98 07/11/24 04:00 07/11/24 05:08 07/11/24 04:00 07/11/24 05:08 07/11/24 04:00 General: Alert, In no apparent distress, Oriented x3 HEENT: Atraumatic, Normocephalic Neck: Supple Respiratory: Normal air movement Cardiovascular: Normal pulses, Regular rate/rhythm, Systolic murmur Capillary refill: <2 Seconds Gastrointestinal: Soft and benign Musculoskeletal: No clubbing, No swelling Integumentary: No rashes Neurological: Normal speech, Normal tone, Normal affect Lymphatics: No axilla or inguinal lymphadenopathy External genitalia: Deferred Rectal: Deferred Other Physical/Emotional Findings: Pt lives in [place], her is a Aircraft Instrument Tester. He is currently taking care of their family (5yr old twins) and he also now has the flu. Pt is eager to get home to help him. Laboratory Data at Discharge: WBC 5.90 thou/uL (4.3-10.9) 07/11/24 05:05 Hgb 9.3 g/dL (12.0-15.0) L 07/11/24 05:05 Hct 27.7 % (36.0-45.0) L 07/11/24 05:05 Plt Count 256 thou/uL (152-406) 07/11/24 05:05 PT 12.1 SECONDS (9.4-12.5) 07/07/24 16:48 INR 1.08 07/07/24 16:48 APTT 32.3 SECONDS (24.3-36.9) 07/08/24 05:35 Sodium 137 mEq/L (136-145) 07/11/24 05:05 Potassium 3.8 mEq/L (3.5-5.1) 07/11/24 05:05 BUN 27 mg/dL (7-18) H 07/11/24 05:05 Creatinine 2.15 mg/dL (0.55-1.02) H 07/11/24 05:05 Glucose 153 mg/dL (74-106) H 07/11/24 05:05 Uric Acid 5.7 mg/dL (2.6-6.0) 07/08/24 13:31 Phosphorus 4.0 mg/dL (2.5-4.9) 07/11/24 05:05 Magnesium 1.9 mg/dL (1.6-2.4) 07/10/24 05:14 Total Bilirubin 0.2 mg/dL (0.2-1.0) 07/11/24 05:05 AST 14 U/L (15-37) L 07/11/24 05:05 ALT < 14 U/L (13-56) 07/11/24 05:05 Alkaline Phosphatase 97 U/L (45-117) 07/11/24 05:05 Triglycerides 238 mg/dL (<150) H 07/08/24 05:35 Cholesterol 195 mg/dL (<200) 07/08/24 05:35 HDL Cholesterol 58 mg/dL (40-60) 07/08/24 05:35 Cholesterol/HDL Ratio 3.36 07/08/24 05:35 <Newman,Mica Angel - Last Filed: 07/11/24 11:38> Vital Signs/Physical Exam: Temp Pulse Resp BP Pulse Ox 97.7 F 72 12 149/72 H 98 07/11/24 12:00 07/11/24 12:00 07/11/24 12:00 07/11/24 12:00 07/11/24 12:00 Laboratory Data at Discharge: WBC 5.90 thou/uL (4.3-10.9) 07/11/24 05:05 Hgb 9.3 g/dL (12.0-15.0) L 07/11/24 05:05 Hct 27.7 % (36.0-45.0) L 07/11/24 05:05 Plt Count 256 thou/uL (152-406) 07/11/24 05:05 PT 12.1 SECONDS (9.4-12.5) 07/07/24 16:48 INR 1.08 07/07/24 16:48 APTT 32.3 SECONDS (24.3-36.9) 07/08/24 05:35 Sodium 137 mEq/L (136-145) 07/11/24 05:05 Potassium 3.8 mEq/L (3.5-5.1) 07/11/24 05:05 BUN 27 mg/dL (7-18) H 07/11/24 05:05 Creatinine 2.15 mg/dL (0.55-1.02) H 07/11/24 05:05 Glucose 153 mg/dL (74-106) H 07/11/24 05:05 Uric Acid 5.7 mg/dL (2.6-6.0) 07/08/24 13:31 Phosphorus 4.0 mg/dL (2.5-4.9) 07/11/24 05:05 Magnesium 1.9 mg/dL (1.6-2.4) 07/10/24 05:14 Total Bilirubin 0.2 mg/dL (0.2-1.0) 07/11/24 05:05 AST 14 U/L (15-37) L 07/11/24 05:05 ALT < 14 U/L (13-56) 07/11/24 05:05 Alkaline Phosphatase 97 U/L (45-117) 07/11/24 05:05 Triglycerides 238 mg/dL (<150) H 07/08/24 05:35 Cholesterol 195 mg/dL (<200) 07/08/24 05:35 HDL Cholesterol 58 mg/dL (40-60) 07/08/24 05:35 Cholesterol/HDL Ratio 3.36 07/08/24 05:35 <ROLAN Ross - Last Filed: 07/11/24 14:46> Diet: ADA Activity: Fall precautions <Newman,Mica Angel - Last Filed: 07/11/24 11:38> <ROLAN Ross - Last Filed: 07/11/24 14:46> Home Medications: Insulin Glargine,Hum.rec.anlog [Lantus] 22 unit SQ BREAKFAST 07/08/24 NIFEdipine [Nifedipine ER] 30 mg PO BID 07/08/24 Hydralazine [Apresoline*] 10 mg PO TID #30 tab 07/11/24 Sulfamethoxazole/Trimethoprim [Bactrim 400-80 mg Tablet] 1 each PO BID #14 07/11/24 New Medications: Hydralazine [Apresoline*] 10 mg PO TID #30 tab Sulfamethoxazole/Trimethoprim [Bactrim 400-80 mg Tablet] 1 each PO BID #14 Physician Discharge Instructions: Mrs. Rachel Tanner is feeling better, fever likely from influenza, UBALDO multifactorial with diabetic CKD, medication for s/s and chronic illnesses in the setting of sepsis/volume depletion. Chest xray did not indicate pneumonia. Urinalysis culture + for ESBL E. coli. Multidrug resistant, placed on Merrem x 3 doses and will discharge on single strength Bactrim x 7 days. Please follow up with PCP and stop Losartan and Metformin until renal status re-evaluated. Followup: Conchita Reardon MD [ACTIVE - CAN ADMIT] - NONE,NONE [Primary Care Provider] -
[2024-07-11 08:48] LABS: C-ANCA Anti-Proteinase 3 <1.0 AI (<1.0); P-ANCA Anti-Myeloperoxidase Ab <1.0 AI (<1.0)
[2024-07-11] MEDS: POTASSIUM CL SA 10 MEQ TAB PO ONE (09:26)
[2024-07-11 11:20] LABS: Anti-Nuclear Antibody Screen Negative (Negative)
[2024-07-11] MEDS: SOD FERRIC GLUC COMPLX/SUCROSE 250 MG in NA CHLORIDE 0.9% 250 ML IV SCH (11:39)
[2024-07-11] MEDS: HYDRALAZINE HCL 25 MG TABLET PO SCH (14:13)
[2024-07-11 14:50] VITALS: O2SAT 98
--- NOTE | 2024-07-11 15:16 | PN ---
Date of Progress Note: 07/11/2024 Subjective: The patient was admitted to the hospital with a flu, acute kidney injury secondary to se psis with UTI. The patient found to have nephrotic range of proteinuria. Objective: Vital Signs: When I saw the patient, blood pressure 183/79, pulse of 68. Yesterday, blo od pressure down to 140. Chest: Clear to auscultation. Heart: S1, S2. Regular. Abdomen: Soft, nontender. Extremities: No edema. Neurologic: Alert. No focality. Laboratory Data: Hemoglobin 9.3, sodium 137, potassium 3.8, bicarb 25, BUN 27, creatinine 2.1, GFR 2 5, calcium 9.4. Iron saturation 28, ferritin 78. PC ratio 11. Serology is still pending. TSH 1.3, PTH 146. Current Medications: The patient on, it includes: 1.Meropenem 500 b.i.d. 2.Heparin. 3.Hydralazine 25 t.i.d. 4.Metoprolol 50 b.i.d. 5.Nifedipine 60. 6.Gabapentin. 7. . Assessment And Plan: 1.Acute kidney injury, normal sized kidney, nephrotic range proteinuria secondary to diabetes nephro ivette, with the toxic acute tubular necrosis. The patient's kidney function plateaued. Patient mary red from the Renal standpoint for discontinue IV fluid. To follow up for the rest of her workup as a n outpatient. 2.Nephrotic range of proteinuria mostly secondary to diabetes. We will consider adding MARY inhibito r or ARB as an outpatient after stabilized the kidney function with the presence of anemia. Follow u p serum protein electrophoresis. 3.Iron-deficiency anemia. I will start the patient on IV iron. If the patient is going to be disch arged, okay to be placed on oral iron. 4.Hypertension, poorly controlled. We will increase hydralazine. We will consider adding MARY inhib itor or ARB as an outpatient. 5.Flu, as by Primary. 6.Urinary tract infection secondary to Escherichia coli extended spectrum beta-lactamase. Continue current antibiotic for full 10 days. YON/ANN Voice ID: [id number] Report ID: [id number]
[2024-07-11 15:57] LABS: Rheumatoid Factor NEG (NEG)
[2024-07-11 16:25] VITALS: BP 143/77; TEMP 97.9
[2024-07-11] MEDS ORDERED: carvediloL 25 MG TAB PO SCH (18:00)
[2024-07-15 14:44] LABS: Complement C3 139 mg/dL (83-193)
== END 2024-07-11 17:23 | disposition home or self-care (01) | DRG 871 ==
LOC: ER 16:33 → ERHOLD 18:42 → 2ND 19:10
PROVIDERS: ADMIT Hospitalist; ATTEND Internal Medicine
PROC: 02HV33Z Insertion of Infusion Device into Superior Vena Cava, Percutaneous Approach (ICD-10-PCS; principal; 2024-07-07)
DX: A41.51 Sepsis due to Escherichia coli [E. coli] (principal); N17.0 Acute kidney failure with tubular necrosis; E87.1 Hypo-osmolality and hyponatremia; Z16.24 Resistance to multiple antibiotics; Z16.12 Extended spectrum beta lactamase (ESBL) resistance; N10 Acute pyelonephritis; R65.20 Severe sepsis without septic shock; I12.9 Hypertensive chronic kidney disease with stage 1 through stage 4 chronic kidney disease, or unspecified chronic kidney disease; N18.9 Chronic kidney disease, unspecified; E11.22 Type 2 diabetes mellitus with diabetic chronic kidney disease; D63.1 Anemia in chronic kidney disease; D50.9 Iron deficiency anemia, unspecified; E87.6 Hypokalemia; E86.9 Volume depletion, unspecified; J10.1 Influenza due to other identified influenza virus with other respiratory manifestations; R31.9 Hematuria, unspecified; Z79.4 Long term (current) use of insulin; Z11.52 Encounter for screening for COVID-19; Z79.84 Long term (current) use of oral hypoglycemic drugs; Z79.899 Other long term (current) drug therapy
CPT/HCPCS: 36415; 71045; 74176; 76377; 76770; 80048; 80053; 80061; 80069; 80076; 81001; 82550; 82570; 82728; 82947; 83540; 83605; 83735; 83880; 83970; 84100; 84156; 84165; 84443; 84466; 84484; 84550; 85025; 85044; 85610; 85730; 86021; 86038; 86160; 86334; 86430; 86803; 87040; 87070; 87077; 87081; 87086; 87088; 87186; 87804; 87811; 93005; 94760; 96365; 99285; J0360; J0692; J1644; J1815; J2916; J3475; J7030; J7050